=== PATIENT | male | born 1975 | race Caucasian/White ===

== ENCOUNTER 2018-06-25 05:14 | Day surgery (SDC) | payer OTHER ==
[2018-06-10 07:56] VITALS: BMI 23.5
--- NOTE | 2018-06-25 08:14 | HP ---
[facility] - Chief Complaint Chief Complaint: left shoulder pain - Past Medical History Allergies/Adverse Reactions: Allergies Allergy/AdvReac Type Severity Reaction Status Date / Time No Known Drug Allergies Allergy Verified 06/10/18 07:56 - Current Medications Current Medications: Home Medications Medication Instructions Recorded Multivitamin [One-Daily 1 each PO DAILY 06/10/18 Multi-Vitamin] [facility] Physical Exam - Physical Examination General Appearance: Well Nourished, Well Developed, Alert & Oriented x3 ENT: Clear Lung: Normal air movement Heart: Regular rate & rhythm Extremities: Other (left shoulder- + ttp, dec rom, + neer, + borrero, nvi MRi + impingement) Neurological: Intact, Alert, Oriented [facility] Impression/Plan - Impression/Plan Impression: left shoulder impingement syndrome Operative Procedure: left shoulder arthroscopy with SAD Date to be Performed: 06/25/18
[2018-06-25] MEDS ORDERED: MIDAZOLAM HCL 2 MG/2 ML SINGLE DOSE VIAL ONE ×2 (10:57)
[2018-06-25] MEDS ORDERED: PROPOFOL 20 ML ONE (12:10)
[2018-06-25] MEDS ORDERED: DESFLURANE GAS 240 ML BOTTLE IH ONE (12:19)
[2018-06-25] MEDS ORDERED: ceFAZolin SODIUM 1 GM VIAL IVPB ONE (12:20)
--- NOTE | 2018-06-25 13:17 | OP ---
Operative Note - Note: Operative Date: 06/25/18 ([facility]) Pre-Operative Diagnosis: left shoulder impingement Operation: left shoulder arthroscopy with SAD Post-Operative Diagnosis: Same as Pre-op Surgeon: Tk Kaminski Laser Engraver: Will Martinez Anesthesiologist/ACTIVITIES SPECIALIST: Ashley Mullen Anesthesia: General, Local Specimens Removed: shavings Estimated Blood Loss (mls): 5 Operative Report Dictated: Yes
[2018-06-25] MEDS ORDERED: oxyCODONE HCL 5 MG TABLET PO PRN ×2 (13:41)
[2018-06-25] MEDS ORDERED: ONDANSETRON 4 MG/2 ML VIAL IVPUSH PRN (13:41)
[2018-06-25] MEDS ORDERED: KETOROLAC TROMETHAMINE 30 MG/1 ML VIAL IVPUSH ONE (13:44)
--- NOTE | 2018-06-25 14:08 | OP ---
DATE OF OPERATION: 06/25/2018 PREOPERATIVE DIAGNOSIS: Left shoulder impingement syndrome and acromioclavicular joint arthritis. POSTOPERATIVE DIAGNOSIS: Left shoulder impingement syndrome and acromioclavicular joint arthritis. PROCEDURE: Left shoulder arthroscopy, subacromial decompression, and distal clavicle excision. SURGEON: Vernell Morris MD CREDIT SUPPORT SPECIALIST: HO Kaur ANESTHESIOLOGIST: NIESHA Mullen ANESTHESIA: Left interscalene block with LMA anesthesia. DRAINS: None. COMPLICATIONS: None. SPECIMENS: Arthroscopic shavings. BLOOD LOSS: Minimal. BLOOD GIVEN: None. FLUID REPLACEMENT: 1000 mL PlasmaLyte. INDICATION: This patient is a 43-year-old male with preoperative diagnosis of recurrent left shoulder impingement syndrome and AC joint arthritis. After understanding the potential risk, complications, alternatives, and benefits of surgical versus nonsurgical treatment. The patient elected to undergo this procedure. DESCRIPTION OF PROCEDURE: The patient was brought into the operating room, peripheral IV placed. IV sedation given. Two g of IV Ancef was given. Left interscalene block was performed, and LMA anesthesia was induced. The left upper extremity was prepped and draped in a sterile fashion. The bony landmarks were marked out with a marking pen and posterior portal established. A diagnostic glenohumeral arthroscopy was performed. In the glenohumeral joint, the patient had a partial undersurface fraying type tear of the rotator cuff supraspinatus tendon insertion. The biceps tendon looked good. The labrum was a little frayed. There was no glenohumeral osteoarthritis. No other abnormalities. Everything else looked quite good. Therefore, our attention was turned to the subacromial space. A lateral portal was established under direct visualization using a spinal needle. The patient had a tremendous amount of inflammatory bursitis. Next, an extensive debridement was done/soft tissue bursectomy with the Arthrocare wand and a straight shaver. This allowed us to visualize the top surface of the rotator cuff. The arm was put through a full arch range of motion, and there was no rotator cuff tear. Patient had a very large subacromial spur and a large distal clavicle spur, both of which were taken down with a 5.5-mm oval bur, straightened up in reverse and with the shaver. Photographs were taken before and after the bony decompression. The arm was fit through a full range of motion under direct visualization, and there were no points of impingent. The area was copiously irrigated and washed out. All instrumentation, saline, and bony debris were removed. The arthroscopy portal was closed with 3-0 nylon sutures. The incisions were covered with Aquacel dressing, and patient was placed into a shoulder sling. Total operative time was about 40 minutes. There was no complication during the case. Patient tolerated the procedure well and was brought to the ambulatory recovery room in stable condition. VERNELL MORRIS M.D. [id number]
[2018-06-25] MEDS ORDERED: LACTATED RINGERS SOLUTION 1,000 ML IV SCH (14:15)
[2018-06-25] MEDS ORDERED: ACETAMINOPHEN 325 MG TABLET (FP) PO ONE (15:15)
[2018-06-25] MEDS ORDERED: ACETAMINOPHEN 325 MG TABLET (FP) ONE (15:20)
[2018-06-25 17:22] VITALS: BP 131/81; PULSE 77; TEMP 97.8
--- NOTE | 2018-06-26 18:37 | PATH ---
Surgical Pathology Report Patient Name: OLI BROCK Med. Rec. #: [id number] /Age/Gender: 1975 (Age: 43) / M Account: [id number] Location: [facility] SURGICAL Taken: 06/25/2018 Received: 06/25/2018 Reported: 06/26/2018 Physicians: Tk Kaminski M.D. Specimen(s) Received LEFT SHOULDER SHAVINGS Clinical History Left shoulder impingement Final Diagnosis SHOULDER SHAVINGS, LEFT, ARTHROSCOPY: FRAGMENTS OF BENIGN CARTILAGE, DENSE FIBROCONNECTIVE TISSUE, ADIPOSE TISSUE, BONE, AND SKELETAL MUSCLE. Electronically Signed Mirella Rivera M.D. Gross Description Received in formalin, labeled "left shoulder shavings," is a 6.0 x 5.0 x 0.6 cm. aggregate of sainz-yellow soft tissue fragments. A billing customer service representative portion is submitted in one cassette. /06/25/2018 saudi/06/25/2018
== END 2018-06-25 16:30 | disposition home or self-care (01) ==
LOC: JASU-SURG 05:14
PROVIDERS: ATTEND Orthopaedic Surgery
PROC: 0RNK4ZZ Release Left Shoulder Joint, Percutaneous Endoscopic Approach (ICD-10-PCS; 2018-06-25)
PROC: 0PBB4ZZ Excision of Left Clavicle, Percutaneous Endoscopic Approach (ICD-10-PCS; principal; 2018-06-25 12:00)
DX: M13.812 Other specified arthritis, left shoulder (principal); M75.42 Impingement syndrome of left shoulder
CPT/HCPCS: 88304-TC; 94760